=== PATIENT | female | born 1955 | race Caucasian/White ===

== ENCOUNTER 2025-03-12 16:10 | Outpatient (CLI) | payer OTHER, SELFPAY | END 2025-03-12 16:11 | disposition home or self-care (01) | LOC: AMB 03-15 19:10 | PROVIDERS: PCP Family Medicine; Visit Provider Emergency Medicine Emergency Medical Services | DX: H70.001 Acute mastoiditis without complications, right ear (principal) | CPT/HCPCS: A0425; A0428 ==